=== PATIENT | female | born 1935 | race Caucasian/White ===

== ENCOUNTER 2024-04-20 20:03 | Inpatient (IN) | payer OTHER ==
[2024-04-20 20:31] VITALS: BMI 20.6
[2024-04-20 21:53] LABS: BASO % 0.7 % (0-2.0); EOS % 1.6 % (0-4.5); HEMATOCRIT 19.9 % (32.4-45.2); LYMPH % 22.1 % (8-40); MCH 31.9 pg (25.7-33.7); MCHC 34.3 g/dl (32.0-36.0); MEAN CELL VOLUME 93.2 fl (80-96); MEAN PLT VOLUME 7.8 fl (7.5-11.1); MONO % 18.2 % (3.8-10.2); NEUT % 57.4 % (42.8-82.8); PLATELET COUNT 137 10^3/uL (134-434); RBC 2.14 M/mm3 (3.60-5.2); RDW 15.9 % (11.6-15.6); WHITE BLOOD COUNT 3.4 K/mm3 (4.0-10.0)
[2024-04-20 22:00] LABS: INR 0.92 (0.83-1.09); PROTHROMBIN TIME (PATIENT) 10.4 SEC (9.7-13.0)
[2024-04-20 22:02] LABS: ACTIVATED PTT 20.4 SECONDS (25.2-36.5)
[2024-04-20 22:22] LABS: HEMOGLOBIN 6.8 GM/dL (10.7-15.3)
[2024-04-20 22:25] LABS: ALBUMIN 2.4 g/dl (3.4-5.0); BILIRUBIN,TOTAL 1.1 mg/dL (0.2-1); BLOOD UREA NITROGEN 10.9 mg/dL (7-18); CALCIUM 7.4 mg/dL (8.5-10.1); CREATININE 0.6 mg/dL (0.55-1.3); POTASSIUM 3.7 mmol/L (3.5-5.1); TOT PROT 5.3 g/dl (6.4-8.2)
[2024-04-21 01:07] LABS: RETICULOCYTES 2.78 % (0.5-1.5)
[2024-04-21 04:10] LABS: CHLORIDE 100 mmol/L (98-107); SODIUM 135 mmol/L (136-145)
[2024-04-21 04:11] LABS: BLOOD UREA NITROGEN 9.3 mg/dL (7-18); CALCIUM 7.3 mg/dL (8.5-10.1); CO2 28 mmol/L (21-32); GLUCOSE,RANDOM 109 mg/dL (74-106); MAGNESIUM 1.7 mg/dL (1.8-2.4)
[2024-04-21 04:15] LABS: ANION GAP 7 mmol/L (4-13); CREATININE 0.6 mg/dL (0.55-1.3); PHOSPHOROUS 2.2 mg/dL (2.5-4.9); POTASSIUM 2.9 mmol/L (3.5-5.1)
[2024-04-21] MEDS: MAGNESIUM SULFATE IN WATER 2 GM/50 ML IVPB IVPB ONE (04:58)
[2024-04-21] MEDS: KCL 10 MEQ IVPB 10 MEQ/100 ML INFUS.BAG IVPB SCH ×2 (05:47→16:46)
[2024-04-21] MEDS: PANTOPRAZOLE 20 MG TABLET PO SCH (09:57)
[2024-04-21 10:13] LABS: BASO % 0.3 % (0-2.0); EOS % 1.8 % (0-4.5); HEMATOCRIT 23.7 % (32.4-45.2); HEMOGLOBIN 8.3 GM/dL (10.7-15.3); LYMPH % 21.7 % (8-40); MCH 31.8 pg (25.7-33.7); MCHC 34.9 g/dl (32.0-36.0); MEAN CELL VOLUME 91.2 fl (80-96); MEAN PLT VOLUME 7.4 fl (7.5-11.1); MONO % 16.5 % (3.8-10.2); NEUT % 59.7 % (42.8-82.8); PLATELET COUNT 130 10^3/uL (134-434); RBC 2.59 M/mm3 (3.60-5.2); RDW 16.3 % (11.6-15.6); WHITE BLOOD COUNT 3.6 K/mm3 (4.0-10.0)
[2024-04-21] MEDS: NITROFURANTOIN MONOHYD/M-CRYST 100 MG CAPSULE PO SCH (10:57)
[2024-04-21] MEDS: ATENOLOL 50 MG TABLET (FP) PO SCH (10:57)
[2024-04-21] MEDS: LEVOTHYROXINE NA 100 MCG TABLET (FP) PO SCH (13:13)
[2024-04-21 16:09] LABS: CHLORIDE 99 mmol/L (98-107); SODIUM 133 mmol/L (136-145)
[2024-04-21 16:10] LABS: CALCIUM 7.3 mg/dL (8.5-10.1)
[2024-04-21 16:11] LABS: BLOOD UREA NITROGEN 9.7 mg/dL (7-18); CO2 23 mmol/L (21-32); GLUCOSE,RANDOM 140 mg/dL (74-106)
[2024-04-21] MEDS: NAPH,MB-DB/K PH,MBDB POWDER PACKET PO SCH (16:11)
[2024-04-21 16:14] LABS: CREATININE 0.7 mg/dL (0.55-1.3)
[2024-04-21 16:25] LABS: ANION GAP 12 mmol/L (4-13); POTASSIUM 2.9 mmol/L (3.5-5.1)
[2024-04-21] MEDS: POTASSIUM CHLORIDE ORAL LIQUID 20 MEQ/15 ML PO ONE (16:46)
[2024-04-21] MEDS: ACETAMINOPHEN 325 MG TABLET (FP) PO PRN (21:29)
[2024-04-22 08:57] LABS: POTASSIUM 3.2 mmol/L (3.5-5.1)
[2024-04-22 09:04] LABS: HEMATOCRIT 22.5 % (32.4-45.2); MCHC 35.5 g/dl (32.0-36.0); MEAN CELL VOLUME 90.1 fl (80-96); MEAN PLT VOLUME 7.6 fl (7.5-11.1); PLATELET COUNT 135 10^3/uL (134-434); RBC 2.49 M/mm3 (3.60-5.2); RDW 16.7 % (11.6-15.6); WHITE BLOOD COUNT 3.4 K/mm3 (4.0-10.0)
[2024-04-22 09:05] LABS: BLOOD UREA NITROGEN 8.2 mg/dL (7-18)
[2024-04-22 09:08] LABS: CREATININE 0.5 mg/dL (0.55-1.3)
[2024-04-22 10:37] LABS: ANISOCYTOSIS 0; MACROCYTOSIS 0
[2024-04-22] MEDS: POTASSIUM CHLORIDE ORAL LIQUID 20 MEQ/15 ML PO ONE (17:10)
[2024-04-23 08:57] LABS: BASO % 0.3 % (0-2.0); EOS % 0.4 % (0-4.5); HEMATOCRIT 20.4 % (32.4-45.2); HEMOGLOBIN 7.2 GM/dL (10.7-15.3); LYMPH % 15.5 % (8-40); MCH 32.1 pg (25.7-33.7); MCHC 35.3 g/dl (32.0-36.0); MEAN CELL VOLUME 90.8 fl (80-96); MEAN PLT VOLUME 7.5 fl (7.5-11.1); MONO % 17.7 % (3.8-10.2); NEUT % 66.1 % (42.8-82.8); PLATELET COUNT 152 10^3/uL (134-434); RBC 2.25 M/mm3 (3.60-5.2); RDW 16.3 % (11.6-15.6); WHITE BLOOD COUNT 3.7 K/mm3 (4.0-10.0)
[2024-04-23 09:32] LABS: POTASSIUM 3.6 mmol/L (3.5-5.1)
[2024-04-23 09:35] LABS: CALCIUM 7.1 mg/dL (8.5-10.1)
[2024-04-23 09:38] LABS: CREATININE 0.6 mg/dL (0.55-1.3)
[2024-04-23 09:40] LABS: BILIRUBIN,TOTAL 1.2 mg/dL (0.2-1); TOT PROT 4.7 g/dl (6.4-8.2)
[2024-04-24 08:32] LABS: BASO % 0.4 % (0-2.0); EOS % 1.8 % (0-4.5); HEMATOCRIT 22.2 % (32.4-45.2); HEMOGLOBIN 7.8 GM/dL (10.7-15.3); LYMPH % 11.4 % (8-40); MCH 32.2 pg (25.7-33.7); MCHC 35.2 g/dl (32.0-36.0); MEAN CELL VOLUME 91.5 fl (80-96); MEAN PLT VOLUME 7.5 fl (7.5-11.1); MONO % 14.7 % (3.8-10.2); NEUT % 71.7 % (42.8-82.8); PLATELET COUNT 195 10^3/uL (134-434); RBC 2.43 M/mm3 (3.60-5.2); RDW 15.6 % (11.6-15.6); WHITE BLOOD COUNT 3.9 K/mm3 (4.0-10.0)
[2024-04-24 08:46] LABS: CHLORIDE 92 mmol/L (98-107); POTASSIUM 3.2 mmol/L (3.5-5.1); SODIUM 127 mmol/L (136-145)
[2024-04-24 08:49] LABS: ALBUMIN 1.9 g/dl (3.4-5.0); ANION GAP 8 mmol/L (4-13); CO2 27 mmol/L (21-32); GLUCOSE,RANDOM 116 mg/dL (74-106)
[2024-04-24 08:52] LABS: BILIRUBIN,TOTAL 1.1 mg/dL (0.2-1); CREATININE 0.5 mg/dL (0.55-1.3); SGOT/AST 18 U/L (15-37); SGPT/ALT 21 U/L (13-61); TOT PROT 4.8 g/dl (6.4-8.2)
[2024-04-24 08:54] LABS: ALK PHOS 141 U/L (45-117)
[2024-04-24 09:05] LABS: CALCIUM 6.7 mg/dL (8.5-10.1)
[2024-04-24 14:41] LABS: MAGNESIUM 1.7 mg/dL (1.8-2.4)
[2024-04-24] MEDS: POTASSIUM CHLORIDE TABS 20 MEQ TABLET.ER (FP) PO ONE (15:00)
[2024-04-24] MEDS: POTASSIUM CHLORIDE ORAL LIQUID 20 MEQ/15 ML PO ONE (15:41)
[2024-04-24] MEDS: MAGNESIUM SULF 50% (8.12 MEQ/2 ML-1 GM VIAL) IVPB ONE (15:42)
[2024-04-24] MEDS: CALCIUM 500MG/VIT-D 200 UNITS COMBO TABLET (FP) PO SCH (15:42)
[2024-04-25 12:14] LABS: POTASSIUM 4.4 mmol/L (3.5-5.1)
[2024-04-25 12:15] LABS: CALCIUM 7.7 mg/dL (8.5-10.1)
[2024-04-25 12:16] LABS: BLOOD UREA NITROGEN 15.9 mg/dL (7-18)
[2024-04-25 12:19] LABS: CREATININE 0.8 mg/dL (0.55-1.3)
[2024-04-26 10:12] LABS: POTASSIUM 3.4 mmol/L (3.5-5.1)
[2024-04-26 10:16] LABS: BLOOD UREA NITROGEN 13.7 mg/dL (7-18)
[2024-04-26 10:19] LABS: CREATININE 0.7 mg/dL (0.55-1.3)
[2024-04-26] MEDS: POTASSIUM CHLORIDE ORAL LIQUID 20 MEQ/15 ML PO ONE (10:27)
[2024-04-26] MEDS: POTASSIUM CHLORIDE 10 MEQ in SODIUM CHLORIDE 1,000 ML IV SCH (12:07)
[2024-04-26] MEDS: VANCOMYCIN ORAL SOLUTION 125 MG/2.5 ML PO SCH (18:16)
[2024-04-27] MEDS: LOPERAMIDE HCL 2 MG CAPSULE PO ONE (14:43)
[2024-04-27] MEDS: BANATROL PLUS POWDER PACKET PO SCH (22:14)
[2024-04-28 08:28] LABS: POTASSIUM 3.5 mmol/L (3.5-5.1)
[2024-04-28 08:35] LABS: ALBUMIN 2.1 g/dl (3.4-5.0); BLOOD UREA NITROGEN 10.2 mg/dL (7-18); CALCIUM 7.6 mg/dL (8.5-10.1); MAGNESIUM 1.6 mg/dL (1.8-2.4)
[2024-04-28 08:38] LABS: CREATININE 0.6 mg/dL (0.55-1.3)
[2024-04-28 08:40] LABS: BILIRUBIN,TOTAL 0.8 mg/dL (0.2-1); TOT PROT 4.9 g/dl (6.4-8.2)
[2024-04-28 08:59] VITALS: RESP 18
[2024-04-28] MEDS: MAGNESIUM 2GM/50ML STERILE WATER IVPB IVPB ONE (12:06)
[2024-04-28 18:55] VITALS: BP 133/51; PULSE 57; TEMP 98.4
== END 2024-04-28 21:25 | DRG 841 ==
LOC: JER 20:03 → JERBED 22:45 → J4S 04-21 01:11 → OBSVTOIN 04-24 10:25
PROVIDERS: ADMIT Internal Medicine; ATTEND Family Medicine
PROC: 30233N1 Transfusion of Nonautologous Red Blood Cells into Peripheral Vein, Percutaneous Approach (ICD-10-PCS; principal; 2024-04-21)
DX: C90.00 Multiple myeloma not having achieved remission (principal); E87.1 Hypo-osmolality and hyponatremia; E83.42 Hypomagnesemia; I10 Essential (primary) hypertension; E03.9 Hypothyroidism, unspecified; E83.51 Hypocalcemia; D64.9 Anemia, unspecified
CPT/HCPCS: 0241U-QW; 36415; 36430; 71045-TC-FY; 71260-TC; 80048; 80053; 82272; 82607; 82728; 83540; 83550; 83735; 84100; 84439; 84443; 84484; 85025; 85045; 85610; 85730; 86850; 86900; 86901; 86922; 87045; 87046; 87493; 93005; 93010; 97116-GP; 99285-25; G0378; P9038; P9058; Q9967